=== PATIENT | male | born 1990 | race Caucasian/White ===

== ENCOUNTER 2016-11-02 17:29 | Emergency (ER) ==
[2016-11-02] MEDS ORDERED: TYLENOL #3 TAB PO STA (17:46)
--- NOTE | 2016-11-02 17:46 | ED.PDOC ---
General ED Provider: Dr. MARYSOL CRYSTAL JR Chief Complaint: Non-specific Complaint Stated Complaint: PATIENT C/O RIGHT UPPER GUM PAIN FOR THE PAST FOUR DAYS. THIS MORNING WOKE UP WITH SEVERE PAIN[End]99.3 98 20 97% 142/93 8/10 MOTRIN 400MG TODAY AT 1400 "I stuck myself with a q -tip usually it gets better quickly" worse and swollen Time Seen by Physician: 17:45 Mode of Arrival: Walk-In Information Source: Patient Exam Limitations: No limitations Nursing and Triage Documentation Reviewed and Agree: No Review of Systems - Review Of Systems Constitutional: Reports: Fever, Malaise Eyes: Reports: No symptoms Ears, Nose, Mouth, Throat: Reports: Nose pain ([id number] maxilla to right of nose) , Mouth pain, Mouth swelling. Denies: Loose teeth, Throat pain Respiratory: Reports: No symptoms Cardiac: Reports: No symptoms GI: Reports: No symptoms : Reports: No symptoms Musculoskeletal: Reports: No symptoms Skin: Reports: Lumps Neurological: Reports: No symptoms Endocrine: Reports: No symptoms Hematologic/Lymphatic: Reports: No symptoms All Other Systems: Other Past Medical History - Past Medical History Previously Healthy: Yes Endocrine: Reports: None Cardiovascular: Reports: None Respiratory: Reports: None Hematological: Reports: None Gastrointestinal: Reports: None Genitourinary: Reports: None Neuro/Psych: Reports: None Musculoskeletal: Reports: None Cancer: Reports: None - Surgical History General Surgical History: Reports: None, Other (drill bit in right maxilla medially to area of inflammation) - Family History Family History: Reports: Unknown - Social History Smoking Status: Current some day smoker Hx Substance Use: No Alcohol Screening: Occasionally - Immunizations Tetanus Shot up to Date: Yes Physical Exam - Physical Exam Appearance: Well-appearing Pain Distress: Moderate ENT: Ears normal, Nose normal, Erythema (right buccalcleft without discharge) Neck: Supple Respiratory: Airway patent, Breath sounds clear, Breath sounds equal, Respirations nonlabored Cardiovascular: RRR, Pulses normal, No rub, No murmur GI/: Soft, Nontender, No masses, Bowel sounds normal, No Organomegaly Musculoskeletal: Normal strength, ROM intact, No edema, No calf tenderness Skin: Warm, Dry, Normal color Neurological: Sensation intact, Motor intact, Reflexes intact, Cranial nerves intact, Alert, Oriented Psychiatric: Affect appropriate, Mood appropriate Critical Care Note - Critical Care Note Total Time (mins): 0 Course - Course Vital Signs: Temp Pulse Resp BP Pulse Ox 11/02/16 17:30 99.3 F 98 H 20 142/93 H 97 Departure - Departure Time of Disposition: 17:59 Disposition: HOME SELF-CARE Discharge Problem: Cellulitis of lip Instructions: Cellulitis (ED) Condition: Good Pt referred to PMD for follow-up: Yes Prescriptions: Acetaminophen with Codeine [Tylenol #3 Tab] 1 - 2 tab PO QID PRN #20 tablet PRN Reason: PAIN Cephalexin [Keflex] 500 mg PO QID #40 capsule Allergies/Adverse Reactions: Allergies No Known Allergies Allergy (Verified 04/12/13 16:14) Home Medications: Ambulatory Orders Acetaminophen with Codeine [Tylenol #3 Tab] 1 - 2 tab PO QID PRN #20 tablet 01/11 Cephalexin [Keflex] 500 mg PO QID #40 capsule 11/02/16
[2016-11-02 17:49] VITALS: BP 142/93; TEMP 99.3; BMI 22.9
[2016-11-02] MEDS ORDERED: KEFLEX PO STA (17:53)
== END 2016-11-02 18:13 | disposition home or self-care (01) ==
LOC: ED 17:29
DX: L03.211 Cellulitis of face (principal); F17.210 Nicotine dependence, cigarettes, uncomplicated
CPT/HCPCS: 99283